=== PATIENT | male | born 2005 | race Caucasian/White ===

== ENCOUNTER 2024-05-25 08:13 | Emergency (ER) | payer OTHER ==
[2024-05-25 08:40] VITALS: BP 130/88
[2024-05-25 08:57] LABS: BASOPHILS # (AUTO) 0.1 10^3/uL (0.0-0.1); BASOPHILS % (AUTO) 0.9 %; EOSINOPHILS # (AUTO) 1.8 10^3/uL (0.0-0.7); EOSINOPHILS % (AUTO) 14.3 %; HCT - HEMATOCRIT 36.9 % (42.0-52.0); HGB - HEMOGLOBIN 11.6 g/dL (14.0-18.0); LYMPHOCYTES # (AUTO) 1.3 10^3/uL (1.5-3.5); LYMPHOCYTES % (AUTO) 10.4 %; MEAN CORPUSCULAR HEMOGLOBIN 26.9 pg (27.0-31.0); MEAN CORPUSCULAR HGB CONC 31.4 g/dL (32.0-36.0); MEAN CORPUSCULAR VOLUME 85.4 fL (80.0-94.0); MEAN PLATELET VOLUME 8.2 fL (7.4-11.4); MONOCYTES # (AUTO) 1.4 10^3/uL (0.0-1.0); MONOCYTES % (AUTO) 11.2 %; NEUTROPHILS # (AUTO) 7.8 10^3/uL (1.5-6.6); PLT - PLATELET COUNT 352 10^3/uL (130-450); RED BLOOD COUNT 4.32 10^6/uL (4.70-6.10); RED CELL DISTRIBUTION WIDTH 12.9 % (12.0-15.0); WHITE BLOOD COUNT 12.5 x10^3/uL (4.8-10.8)
[2024-05-25] MEDS: SODIUM CHLORIDE 0.9% 1,000 ML IV STA ×2 (08:57→10:24)
[2024-05-25 09:02] LABS: SLIDE REVIEW? Indicated
[2024-05-25 09:11] LABS: ALBUMIN 3.9 g/dL (3.2-5.5); BILIRUBIN,TOTAL 0.4 mg/dL (0.2-1.0); CALCIUM 9.3 mg/dL (8.5-10.3); CREATININE 0.8 mg/dL (0.6-1.3); POTASSIUM 3.9 mmol/L (3.5-4.5); TOTAL PROTEIN 7.8 g/dL (6.4-8.9)
[2024-05-25 09:23] LABS: PLATELET ESTIMATE, MANUAL NORMAL (130-450,000) (NORMAL); PLATELET MORPHOLOGY NORMAL APPEARANCE (NORMAL); RBC MORPHOLOGY (MULTIPLE) NORMAL APPEARANCE (NORMAL)
[2024-05-25 09:53] LABS: BILIRUBIN,URINE NEGATIVE (NEGATIVE); GLUCOSE, URINE (UA) NEGATIVE (NEGATIVE); KETONES,URINE (UA) NEGATIVE (NEGATIVE); LEUKOCYTE ESTERASE, URINE NEGATIVE (NEGATIVE); NITRITE,URINE NEGATIVE (NEGATIVE); OCCULT BLOOD,URINE NEGATIVE (NEGATIVE); PROTEIN,URINE TRACE mg/dL (NEGATIVE); UROBILINOGEN,URINE 0.2 (NORMAL) E.U./dL (NORMAL)
[2024-05-25 09:55] LABS: CLARITY,URINE CLEAR (CLEAR)
[2024-05-25 10:03] LABS: AMPHETAMINE SCREEN,URINE NEGATIVE (NEGATIVE); BARBITURATE SCREEN,UR NEGATIVE (NEGATIVE); BENZODIAZEPINES SCREEN, URINE NEGATIVE (NEGATIVE); BUPRENORPHINE SCREEN, URINE NEGATIVE (NEGATIVE); COCAINE SCREEN URINE NEGATIVE (NEGATIVE); METHADONE SCREEN, URINE NEGATIVE (NEGATIVE); METHAMPHETAMINES SCREEN, URINE NEGATIVE (NEGATIVE); OPIATE SCREEN, URINE NEGATIVE (NEGATIVE); OXYCODONE SCREEN, URINE NEGATIVE (NEGATIVE); THC CANNABINOID SCREEN, URINE NEGATIVE (NEGATIVE); TRICYCLIC ANTIDEPRESSANT,URINE NEGATIVE (NEGATIVE)
[2024-05-25 11:14] VITALS: O2SAT 100
--- NOTE | 2024-05-25 12:06 | ED Physician Documentation ---
PD HPI NVD - Stated complaint Stated Complaint: DIARRHEA - Chief complaint Chief Complaint: Abd Pain - History obtained from History obtained from: Patient, Family - Additonal information Additional information: The patient is brought to the emergency department by dad for chief complaint of increased diarrhea. The patient has been having diarrhea for about a year and has been worked up fairly extensively by GI. He has recently had an MRI of the abdomen pelvis which dad states as far as he could tell was unremarkable. The patient has a colonoscopy coming up. He has not had any nausea or vomiting. He states that he has had a skin outbreak on and off for the last month or 2 but that recently, he had an outbreak starting a couple of weeks ago. 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 The patient states that it gets a little itchy and it just bothers him, and he has developed quite a few scabs on his face and chest. He denies any fevers or chills. He denies any drug use. No mental health history. He answers quite a few questions by just saying "I do not know". PD PAST MEDICAL HISTORY - Past Medical History Past Medical History: No - Present Medications Home Medications: Ambulatory Orders Medication Instructions Recorded Confirmed Dextroamphetamine/Amphetamine 20 mg PO DAILY 05/25/24 05/25/24 [Adderall 20 mg Tablet] Gentamicin 0.3% Ophth Drops 1 drops OPTH BID #5 ml 05/25/24 [Garamycin] Sulfamethox/Trimeth 800/160 1 each PO BID #14 tablet 05/25/24 [Bactrim Ds 800/160] - Allergies Allergies/Adverse Reactions: Allergies Allergy/AdvReac Type Severity Reaction Status Date / Time No Known Drug Allergies Allergy Verified 05/25/24 08:29 - Social History Does the pt smoke?: No Smoking Status: Never smoker Does the pt drink ETOH?: No Does the pt have substance abuse?: No - POLST Patient has POLST: No PD ED PE NORMAL - Vitals Vital signs reviewed: Yes - General General: Alert and oriented X 3, No acute distress, Other (Very thin male with extensive scabbing on his face and chest) - HEENT HEENT: Atraumatic, PERRL, EOMI, Moist mucous membranes, Other (Conjunctival injection Right eye, moderate mucopurulent discharge. No haziness of cornea.) - Neck Neck: Supple, no meningeal sign - Cardiac Cardiac: Strong equal pulses, Other (Mild tachycardia, regular rhythm, blowing holosystolic murmur) - Respiratory Respiratory: No respiratory distress, Clear bilaterally - Abdomen Abdomen: Soft, Non tender, Non distended - Derm Derm: Normal color, Warm and dry, Other (Extensive scabbing over face and less so on posterior neck. Large areas of scabbing over upper chest and around neck line of shirt. Left index finger paronychia with edematous tissue but not distinct fluid collection.) - Extremities Extremities: No deformity - Neuro Neuro: Alert and oriented X 3 - Psych Psych: Normal mood, Normal affect Results - Vitals Vitals: Vital Signs - 24 hr 05/25/24 05/25/24 05/25/24 08:20 09:42 11:08 Temperature 36.6 C Heart Rate 117 H 89 88 Respiratory 17 15 16 Rate Blood Pressure 130/88 H 130/88 H 130/88 H O2 Saturation 100 99 100 05/25/24 11:45 Temperature Heart Rate Respiratory 16 Rate Blood Pressure O2 Saturation Oxygen O2 Source Room air - Labs Labs: Laboratory Tests 05/25/24 05/25/24 05/25/24 08:53 08:53 09:45 WBC 12.5 H RBC 4.32 L Hgb 11.6 L Hct 36.9 L MCV 85.4 MCH 26.9 L MCHC 31.4 L RDW 12.9 Plt Count 352 MPV 8.2 Neut # (Auto) 7.8 H Lymph # (Auto) 1.3 L [place] # (Auto) 1.4 H Eos # (Auto) 1.8 H Baso # (Auto) 0.1 Absolute Nucleated RBC 0.00 Nucleated RBC % 0.0 Manual Slide Review Indicated Platelet Estimate NORMAL (130-450,000) Platelet Morphology NORMAL APPEARANCE RBC Morph Micro Appear NORMAL APPEARANCE Sodium 133 L Potassium 3.9 Chloride 102 Carbon Dioxide 26 Anion Gap 5.0 L BUN 8 Creatinine 0.8 Estimated GFR (MDRD) 125 Glucose 108 H Calcium 9.3 Total Bilirubin 0.4 AST 15 ALT 21 Alkaline Phosphatase 168 H Total Protein 7.8 Albumin 3.9 Globulin 3.9 Albumin/Globulin Ratio 1.0 Lipase 14 Urine Color DARK YELLOW Urine Clarity CLEAR Urine pH 6.0 Ur Specific [place] 1.025 Urine Protein TRACE Urine Glucose (UA) NEGATIVE Urine Ketones NEGATIVE Urine Occult Blood NEGATIVE Urine Nitrite NEGATIVE Urine Bilirubin NEGATIVE Urine Urobilinogen 0.2 (NORMAL) Ur Leukocyte Esterase NEGATIVE Ur Microscopic Review NOT INDICATED Urine Culture Comments NOT INDICATED Urine Opiates Screen NEGATIVE Ur Buprenorphine Scrn NEGATIVE Ur Oxycodone Screen NEGATIVE Urine Methadone Screen NEGATIVE Ur Barbiturates Screen NEGATIVE Ur Tricyclics Screen NEGATIVE Ur Phencyclidine Scrn NEGATIVE Ur Amphetamine Screen NEGATIVE U Methamphetamines Scrn NEGATIVE U Benzodiazepines Scrn NEGATIVE Urine Cocaine Screen NEGATIVE U Cannabinoids Screen NEGATIVE Ur Drug Screen Comment CUTOFF CONC BELOW: PD Medical Decision Making - ED course Complexity details: reviewed results, re-evaluated patient, considered differential, d/w patient ED course: I did question the patient carefully as there seem to be more to the story, but I could not really elicit details from the patient. When asked about his facial scabbing, he initially stated that he had only had it for 2 days but his father contradicted him and reminded him he to had it for couple of weeks. He had extensive scabbing and appeared to be picking, With which his father did concur. The paronychia and was puffy and edematous but did not have a distinct fluctuance to indicate a pus collection. I determined that at this point, we would treat with antibiotics only. When asked about his right eye findings and if the eye had been bothering him, the patient simply stated "I do not know". When asked about his paronychia him and how long he had had it, the patient also stated that he did not know. When asked about trauma to the finger the patient also said he did not know. He denied methamphetamine use but it was concerned that the patient may be abusing some sort of illicit substance, given the picking, as well as the seeming lack of concern over self-care and health issues on the patient's part. He did appear to have been prescribed amphetamine based ADHD meds, but his drug screen was negative even for these. He did have concentrated urine and was given 2 L of 0.9 normal saline while here. His laboratory studies otherwise are fairly unremarkable. At this point in time, the patient does have specialty follow-up and felt he is stable for discharge. I have advised the father and the patient of the patient's heart murmur and I have prescribed Bactrim for the patient's finger and gentamicin drops for the patient's eye. We have discussed the importance of follow-up and I have suggested that perhaps for the skin picking, given that we have not found any positivity for meth or anything else, that the patient consider follow-up for dermatology evaluation and possibly, mental health evaluation. The patient is stable for discharge home at this point in time. Departure - Departure Disposition: 01 Home, Self Care Clinical Impression: Diarrhea Qualifiers: Diarrhea type: unspecified type Qualified Code(s): R19.7 - Diarrhea, unspecified Conjunctivitis Qualifiers: Conjunctivitis type: acute Acute conjunctivitis type: unspecified Laterality: right Qualified Code(s): H10.31 - Unspecified acute conjunctivitis, right eye Paronychia of finger Qualifiers: Laterality: left Qualified Code(s): L03.012 - Cellulitis of left finger Condition: Stable Instructions: ED Conjunctivitis Nonspecific, ED Fingernail Infec Prescriptions: Sulfamethox/Trimeth 800/160 [Bactrim Ds 800/160] 1 each PO BID #14 tablet Gentamicin 0.3% Ophth Drops [Garamycin] 1 drops OPTH BID #5 ml Comments: Overall, the laboratory studies look good. It is not clear what is causing the ongoing diarrhea and the recent uptick. It is important that you get plenty of fluids to drinkat least 8 to 10 cups/day and more if you are losing a lot of fluid to diarrhea. You were somewhat dehydrated today and we gave you 2 bags of IV fluid. You have an infection in on your left index finger, though it does not have a distinct palpable pus collection. We will start you on antibiotics for this. You also have pinkeye on the right need to be started on an antibiotic drop for that. Prescriptions for both of these will be sent to the pharmacy of your choice. Please continue to follow-up with your gastroenterology specialist regarding your chronic diarrhea. As far as the skin outbreak, please consider follow-up with a plastic fixture builder and potentially, with a mental health specialist to get to the bottom of the picking. Forms: PCP List, Activity restrictions
== END 2024-05-25 12:28 | disposition home or self-care (01) ==
LOC: ED 08:13
DX: R19.7 Diarrhea, unspecified (principal); H10.31 Unspecified acute conjunctivitis, right eye; L03.012 Cellulitis of left finger
CPT/HCPCS: 36415; 80053; 80306; 81001; 81003; 83690; 85025; 87086; 96360; 96361; 99284